=== PATIENT | male | born 1945 | race Caucasian/White ===

== ENCOUNTER → 2019-12-16 | Outpatient (CLI) | payer MEDICARE, OTHER ==
[~2019-12-16] MED LIST: ASPI81TA85 PO; B-122500 PO; CINN500C15 PO; CO Q200C10 PO; CVS1CAP2 PO; ENTY1INJ IV; EQL50TAB2 PO; FLOM0.4C39 PO; LASI40TA9 PO; LIVA2TAB PO; METO1TAB87 PO; MM S100C PO; MULT1TAB7 PO; PANT40TA3 PO; QUET1TAB7 PO; RA M500C PO; VITA200038 PO
--- NOTE | 2019-12-16 14:25 | REPPI ---
KUB ABDOMEN AND PELVIS: KUB film of the abdomen and pelvis performed. There is no evidence of bowel obstruction. Multiple metallic clips are seen in the upper abdomen. IVC filter is seen with the superior tip at the L3 level. Left ureteral stent is visualized. Calcification adjacent to the mid aspect of the stent measures approximately 8 mm in diameter. Phleboliths are seen in the pelvis. There are degenerative changes of the spine. IMPRESSION: Left ureteral stent. 8 mm calcification along the mid aspect of the stent presumably in the left ureter. Electronically Signed by Hakan Estevez MD 12/21/2019 09:43 A
== END ==
LOC: M PLAIMG 11:34
PROVIDERS: ATTEND Urology
DX: I87.8 Other specified disorders of veins (principal); N20.0 Calculus of kidney
CPT/HCPCS: 74018; G0463

== ENCOUNTER 2020-01-12 10:07 | Day surgery (SDC) | payer MEDICARE, OTHER ==
[~2020-01-12] VITALS: Ht 182.9 cm; Wt 116.0 kg
[~2020-01-12 10:07] MED LIST changes: +LIDOCAINE 1% MDV 20ML VIAL SQ PRN; +LR 1,000 ML IV ONE; +LevoFLOXacin IV 500 MG in IV 1 EA IV ONE
[2020-01-12] MEDS ORDERED: fentaNYL 100 MCG/2 ML INJECTION (J3010) As Ordered ONE (11:42)
[2020-01-12] MEDS ORDERED: MIDAZOLAM INJ 2 MG/2 ML VIAL (J2250) As Ordered ONE (11:42)
[2020-01-12] MEDS ORDERED: propofoL 200 MG/20 ML VIAL As Ordered ONE ×2 (11:43→14:15)
[2020-01-12] MEDS ORDERED: dexameTHASONE 4 MG/ML 1ML VIAL (J1100) As Ordered ONE (11:43)
[2020-01-12] MEDS ORDERED: ONDANSETRON 4MG/2ML VIAL (J2405) As Ordered ONE (11:43)
[2020-01-12] MEDS ORDERED: LIDOCAINE 2% INJ 100 MG/5 ML SDV (FOR ANES.) As Ordered ONE (11:43)
[2020-01-12] MEDS ORDERED: CONRAY-60 60% 50ML VIAL (Q9961) As Ordered ONE (13:17)
[2020-01-12] MEDS ORDERED: LIDOCAINE 2% 5ML JELLY UROJET As Ordered ONE (13:17)
[2020-01-12] MEDS ORDERED: ePHEDrine SULFATE 25 MG/5 ML(5MG/ML) SYRINGE As Ordered ONE (14:17)
[2020-01-12] MEDS ORDERED: PHENYLephrine HCL 500 MCG/5 ML (100MCG/ML) SYRINGE (J2370) As Ordered ONE (14:17)
--- NOTE | 2020-01-12 15:14 | REP ---
RETROGRADE PYELOGRAM: Two views. HISTORY: Cyst. 13 seconds of fluoroscopy time is reported. FINDINGS: A sequence of two last image hold fluoroscopically obtained spot radiographs of the abdomen document ureteral cannulation, contrast injection, and stent placement. No laterality markers are visible but the procedure appears to have been done on the left side. There is an IVC filter to the right of midline. Electronically Signed by Ranjan Anaya MD 01/12/2020 05:15 P
[2020-01-12] MEDS ORDERED: ACETAMINOPHEN TAB 650MG DOSE (2X325MG) PO PRN (17:00)
[2020-01-12] MEDS ORDERED: ONDANSETRON 4MG/2ML VIAL (J2405) IV PRN (17:00)
[2020-01-12 18:00] VITALS: BP 131/73
[2020-01-12] MEDS ORDERED: PERCOCET 5MG/325MG TAB PO PRN (18:30)
[2020-01-12] MEDS ORDERED: TAMSULOSIN 0.4 MG CAP PO SCH (21:00)
[2020-01-12] MEDS ORDERED: QUEtiapine FUMARATE 25 MG TAB PO SCH (21:00)
[2020-01-12] MEDS: METOPROLOL TART 25 MG TABLET PO SCH (21:14)
[2020-01-12 22:00] VITALS: BP 128/64
[2020-01-13 06:45] VITALS: BP 144/90
[2020-01-13 08:01] VITALS: BP 144/90
[2020-01-13] MEDS: METOPROLOL TART 25 MG TABLET PO SCH (08:01)
[2020-01-13] MEDS ORDERED: FUROSEMIDE 40 MG TAB PO SCH (09:00)
[2020-01-13] MEDS ORDERED: ASPIRIN 81 MG ENTERIC TAB PO SCH (09:00)
[2020-01-13] MEDS ORDERED: MAGNESIUM OXIDE 400 MG TAB (MAG-OX) PO SCH (09:00)
[2020-01-13] MEDS ORDERED: PANTOPRAZOLE 40MG TAB (PROTONIX) PO SCH (09:00)
--- NOTE | 2020-01-13 09:08 | IPNPDOC ---
Subjective Review oF Systems Chief Complaint The patient is a 74-year-old male admitted with a reason for visit of Nephrolithiasis. Events since Last Encounter No acute events o/n. Denies pain. No n/v. No f/c/ns. Objective Physical Examination General Exam: Alert, Cooperative ABDOMEN EXAM: Soft; No: Tenderness Psych Exam: Mental status NL, Mood NL Vital Signs/I&O Vital Signs Date Time Temp Pulse Resp B/P (MAP) Pulse Ox O2 Delivery O2 Flow Rate FiO2 01/13/20 08:01 63 144/90 01/13/20 06:45 98.4 18 98 Room Air I&O- Last 24 Hours up to 6 AM 01/13/20 06:00 Intake Total 1370 ml Balance 1370 ml Laboratory Data Labs 24H Laboratory Tests 2 01/12/20 11:00: Bedside Glucose (Misc Panel) 162H 01/12/20 18:04: Bedside Glucose (Misc Panel) 145H 01/12/20 22:44: Bedside Glucose (Misc Panel) 114H CBC/BMP Laboratory Tests 01/12/20 10:34 FSBS Laboratory Tests Test 01/12/20 11:00 01/12/20 18:04 01/12/20 22:44 Range/Units Bedside Glucose (Misc Panel) 162 145 114 83-110 MG/DL Assessment/Plan Date Seen The patient was seen on 01/13/20. Patient Summary This is a 74 y/o M POD1 s/p cysto, left ureteroscopy w/ laser lithotripsy and basket extraction of stones, left ureteral stent exchange. He is doing well. Denies pain. No fevers. Plan/VTE VTE Prophylaxis Ordered?: No VTE Exclusion Mechanical Proph: N/A:VTE Prophy Ordered Plan - cont home meds - regular diet - discharge home today - f/u next week for stent removal KAY WOODY MD Jan 13, 2020 09:08
--- NOTE | 2020-01-13 13:53 | RO ---
DATE OF PROCEDURE: 01/12/2020 PREPROCEDURE DIAGNOSIS: Left ureteral stone. POSTPROCEDURE DIAGNOSIS: Left ureteral stone. PROCEDURE: Cystoscopy, left ureteroscopy with laser lithotripsy and basket extraction of stones, left retrograde pyelogram with intraoperative interpretation of images, left ureteral stent exchange. SURGEON: Dr. Barry Bruner EXERCISE INSTRUCTOR: None. ANESTHESIA: MAC. OPERATIVE INDICATIONS: This is a 74-year-old male who underwent a cystoscopy and left ureteral stent placement for an obstructing 7 to 8 mm proximal left ureteral stone approximately 4 months ago. This was done at an outside institution. He presented to our office approximately 1 month ago for continuation of care. He was brought to the operating room today for treatment of his stone. DESCRIPTION OF PROCEDURE: The patient was brought to the operating room, where general anesthesia was administered. Prophylactic antibiotics were infused. He was then placed in the dorsal lithotomy position and prepped and draped in the usual sterile fashion. A rigid cystoscope was then inserted into the urethral meatus and advanced into the bladder. The left ureteral stent was seen and grasped and then withdrawn until the distal end was seen protruding through the urethral meatus. I then advanced a guidewire up the stent and into the left collecting system. The stent was then removed completely. I then advanced the ureteral access sheath over the wire into the left collecting system. I went up the access sheath with the flexible ureteroscope and the kidney was thoroughly examined. There was a moderate amount of debris inside the left kidney but no stones were seen. I then withdrew the ureteroscope along with the access sheath and no additional stones were seen in the proximal ureter but in the mid ureter the 8 mm stone was seen. The stone was fragmented into smaller pieces using a 272 micron laser fiber. All the fragments were then removed using a basket. A retrograde pyelogram was performed and was notable for moderate left hydronephrosis with no extravasation. I then continued to withdraw the uteroscope along with access sheath and no additional stones were seen. At this point, the previously placed wire was utilized to advance a #6-Palest[place] x 22-32 cm JJ ureteral stent into the left collecting system. The wire was then removed, and there were adequate curls of the stent in the left renal pelvis and in the bladder. The bladder was then emptied of all fluid, and this marked the conclusion of the procedure. The patient was then taken out of the dorsal lithotomy position, awakened from anesthesia, and transported to the recovery room in stable condition. ESTIMATED BLOOD LOSS: 5 mL. COMPLICATIONS: None. SPECIMENS: Kidney stone fragments. PLAN: The patient will followup in the clinic in approximately 1 to 2 weeks for stent removal. MICHELLE
== END 2020-01-13 11:30 | disposition home or self-care (01) ==
LOC: M SDC 10:07 → M MS5PR 17:25 → M SDC 01-13 11:30
PROVIDERS: ATTEND Urology
DX: N20.1 Calculus of ureter (principal); C61 Malignant neoplasm of prostate; I50.9 Heart failure, unspecified; I48.91 Unspecified atrial fibrillation; E78.5 Hyperlipidemia, unspecified; E11.9 Type 2 diabetes mellitus without complications; K22.70 Barrett's esophagus without dysplasia; K50.90 Crohn's disease, unspecified, without complications; M19.90 Unspecified osteoarthritis, unspecified site; Z95.5 Presence of coronary angioplasty implant and graft; Z98.84 Bariatric surgery status; Z88.0 Allergy status to penicillin; Z88.8 Allergy status to other drugs, medicaments and biological substances; Z86.73 Personal history of transient ischemic attack (TIA), and cerebral infarction without residual deficits; Z79.899 Other long term (current) drug therapy; Z79.82 Long term (current) use of aspirin
CPT/HCPCS: 36415; 52356; 74420; 82365; 84132; 88300; C1769; C1894; C2617; J1100; J1956; J2250; J2370; J2405; J3010; Q9961